=== PATIENT | male | born 1965 | race Caucasian/White ===

== ENCOUNTER 2017-01-08 23:50 | Emergency (ER) | payer MEDICARE ==
[~2017-01-08 23:50] MED LIST: ACCUNEB INH; AFRIN15 NAS; AMB10 PO; ASAB PO; ATIVAN2 MG PO; ATV1 PO; BENADRYL 50 MG50 MG PO; BENTYL10 PO; BUM1 PO; CARASPUDL PO; CARDCD120 PO; CARDCD180 PO; CELEXA20; COREG12 PO; COREG25 PO; COREG3 PO; COZAAR100 MG PO; CRESTOR20 MG PO; CYMBALTA60 PO; DEMA20 PO; DEXILANT; DEXLANT PO; DILACOR XR PO; ELIDEL TOP; FISH-EPA1000 MG PO; FLEX PO; FLONASE NAS; GLUMETZA500 MG PO; HALF81 PO; HYCET 7.5 MG-3473 ML PO; HYDROCHLOROT12.5 MG PO; HYDROCORTISO2.5 % RE; IMDUR30 PO; IMDUR60 PO; ISOSORB DIN30 MG PO; KAPIDEX60 MG PO; KDUR10 PO; KEPPRA500 PO; KLONO1 PO; KLONO2 PO; KLOR-CON 1010 MEQ PO; L20 PO; LANTUS SC; LEVAQUIN750 MG PO; LEVEMIR SC; LEVSINTAB PO; LEXAPRO20 PO; LIDODERM T; LOVAZA1 GM PO; LYRICA150 MG PO; LYRICA200 MG PO; MEDROLPAK4; MEDROLPAK4 PO; MICROZIDE PO; MIRAPEX1 MG PO; MIRAPEX1.5 MG PO; MIRAPEX5 PO; MORPHINE SULFATE ER PO; MYTAB GAS80 MG PO; Mirapex PO; NEUR300 PO; NITROQUICK0.4 MG SL; NITROSTAT0.4 MG SL; NORCO1 TAB PO; NORV5 PO; NOVOLOG SC; NTG150 SL; OXYCON20 PO; PCET PO; PERCOCET1 TA4 PO; PLAVIX PO; PR25 PO; PRAMIPEXOLE PO; PRILO PO; PROAIR HFA INH; PROTONIX PO; REG PO; REG5 PO; REGLAN PO; REQUIP2 PO; REQUIP4 MG PO; SEROQUEL1C PO; SEROQUEL300 MG PO; SPIRO25 PO; STEROID INJECTION IM; SUCR PO; TESSALON200 MG PO; ULTRAM50 PO; VENTOLIN HFA INH; ZOCOR20 PO; ZOCOR40 PO; ZOL100 PO
[2017-01-09 00:30] LABS: BASOPHILS 0.2 %; BASOPHILS ABSOLUTE 0.02 10/3/uL (0.0-0.16); EOSINOPHILS 1.4 %; EOSINOPHILS ABSOLUTE 0.11 10/3/uL (0.0-0.53); HEMATOCRIT 35.9 % (40.0-51.0); HEMOGLOBIN 12.4 g/dL (13.6-17.8); IMMATURE GRANULOCYTES 0.4 %; IMMATURE GRANULOCYTES ABSOLUTE 0.03 10/3/uL (0.0-0.11); LYMPHOCYTES 27.9 %; LYMPHOCYTES ABSOLUTE 2.24 10/3/uL (0.67-4.30); MEAN CORPUS HGB CONC 34.5 g/dL (32.0-36.0); MEAN CORPUSCULAR HEMOGLOB 27.9 pg (26.0-34.0); MEAN PLATELET VOLUME 9.9 fL (9.2-13.0); MONOCYTES 7.9 %; MONOCYTES ABSOLUTE 0.63 10/3/uL (0.21-1.20); NEUTROPHILS 62.2 %; NEUTROPHILS ABSOLUTE 4.99 10/3/uL (2.02-8.40); PLATELET COUNT 251 10/3/uL (150-400); RBC DISTRIBUTION WIDTH 14.6 % (12.0-16.0); RED CELL COUNT 4.45 10/6/uL (4.7-6.1)
[2017-01-09 00:31] LABS: MANUAL DIFF NO %; MEAN CORPUSCULAR VOLUME 80.7 fL (80-100)
[2017-01-09 01:51] LABS: BUN (BLOOD UREA NITROGEN) 16 MG/DL (6-23); CALCIUM, SERUM 8.5 MG/DL (8.5-10.4); CHLORIDE, SERUM 107 MMOL/L (96-112); CO2 (CARBON DIOXIDE) 24 MMOL/L (24-34); CREATININE 1.12 MG/DL (0.70-1.30); GFR AFRICAN AMERICAN 88 ML/MIN (>=60); GFR NON AFRICAN AMERICAN 76 ML/MIN (>=60); GLUCOSE, SERUM 132 MG/DL (60-99); POTASSIUM, SERUM 3.8 MMOL/L (3.5-5.3); SODIUM, SERUM 141 MMOL/L (135-148); TROPONIN I <0.02 NG/ML (<0.05)
[2017-01-09 01:52] LABS: CHEST PAIN PROFILE TAT 0 Hrs 48 Mins
[2017-01-09 02:00] LABS: PARTIAL THROMBO TIME 24.3 SEC (22.5-37.2)
[2017-01-09 02:04] LABS: PROTIME (NOT ORD) 13.2 SEC (12.0-14.5)
== END 2017-01-09 01:35 | disposition left against medical advice (07) ==
LOC: ER 23:50
PROVIDERS: Emergency Medicine
DX: R07.9 Chest pain, unspecified (principal); M54.2 Cervicalgia; Z76.5 Malingerer [conscious simulation]; I11.0 Hypertensive heart disease with heart failure; I50.9 Heart failure, unspecified; E11.9 Type 2 diabetes mellitus without complications; Z88.8 Allergy status to other drugs, medicaments and biological substances; Z88.5 Allergy status to narcotic agent; Z79.82 Long term (current) use of aspirin; Z79.899 Other long term (current) drug therapy
CPT/HCPCS: 71020; 72050; 80048; 83735; 84484; 85025; 85610; 85730; 93005; 99285